=== PATIENT | male | born 1955 | race African-American/Black ===

== ENCOUNTER 2019-06-24 11:31 | Emergency (ER) | payer SELFPAY ==
[~2019-06-24] VITALS: Ht 185.4 cm; Wt 86.6 kg
[2019-06-24 11:43] VITALS: BP 144/83
== END 2019-06-24 14:57 | disposition home or self-care (01) ==
LOC: ER 11:31
DX: F41.9 Anxiety disorder, unspecified (principal); Z76.0 Encounter for issue of repeat prescription